=== PATIENT | female | born 1980 | race Caucasian/White ===

== ENCOUNTER 2017-07-17 16:25 | Emergency (ER) | payer OTHER ==
[2017-07-17 16:30] VITALS: BMI 29.0
[2017-07-17] MEDS ORDERED: LR 1000 ML IV 1,000 ML IV ONE ×2 (16:33→16:54)
[2017-07-17] MEDS ORDERED: PHENERGAN INJ 25 MG ONE (16:37)
[2017-07-17] MEDS ORDERED: MORPHINE SULFATE INJ 4 MG ONE (16:38)
[2017-07-17] MEDS ORDERED: PHENERGAN INJ 25 MG IV ONE (16:39)
[2017-07-17] MEDS ORDERED: MORPHINE SULFATE INJ 4 MG IVP ONE (16:39)
--- NOTE | 2017-07-17 16:44 | ED.ABDFE ---
HPI - Time seen Time seen: 16:37 - PCP Primary Care Physician: POOJA GOLDSTEIN - Complaint Chief Complaint Doctors Comments: Patient presents with complaint of acute LLQ pain. Denies fever, vomiting or diarrhea. Chief Complaint:: PATIENT STATED THAT SHE WAS DRIVING AND BECAME SICK TO HER STOMACH AND THE ALL OF A SUDDEN RIGHT LOWER QUAD. PAIN. - Source History Provided: Patient - Mode of arrival Mode of Arrival: Ambulatory - Timing Onset of Chief Complaint: 07/17/17 PMH - PMH Past Medical History: No Past Surgical History: Yes Surgical History: , Hysterectomy - Family History History of Family Medical Conditions: No - Social History Does patient currently use any type of tobacco product: Yes Have you used tobacco products in the last 12 months: Yes Type of Tobacco Use: Cigarettes Does any household member use tobacco: No Alcohol Use: None Do you use any recreational Drugs:: No Lives With: Family Lives Where: Home - infectious screening In the last 2 months have you had wt loss of >10#?: NO Have you had fever, night sweats or hemotysis?: No Have you traveled outside the country in the last 6 months?: No Isolation: Standard ROS - Review of Systems Constitutional: negative: No Symptoms Reported Eyes: No Symptoms Reported ENTM: No Symptoms Reported Respiratoy: No Symptoms Reported Cardiovascular: No Symptoms Reported Gastrointestinal/Abdominal: No Symptoms Reported Genitourinary: No Symptoms Reported Neurological: No Symptoms Reported Musculoskeletal: No Symptoms Reported Integumentary: No Symptoms Reported Hematologic/Lymphatic: No Symptoms Reported Endocrine: No Symptoms Reported Psychiatric: No Symptoms Reported All Other Systems: Reviewed and Negative PE - Vital Signs Vitals: Temperature 97.6 F Pulse Rate 95 Respiratory Rate 20 Blood Pressure 126/78 O2 Sat by Pulse Oximetry 98 - General Limitations: No Limitations General Appearance: Alert, In No Apparent Distress - Head Head Exam: Normal Inspection, Atraumatic - Eyes Eye exam: Normal Appearance, PERRL, EOMI - ENT ENT Exam: Normal Exam - Neck Neck Exam: Normal Inspection, Full ROM - Chest Chest Inspection: Normal Inspection - Respiratory Respiratory Exam: Normal Lung Sounds Bilat Respiratory Exam: Bilateral Clear to Auscultation - Cardiovascular Cardiovascular Exam: Regular Rate, Normal Rhythm - Abdominal Exam Abdominal Exam: Normal Inspection, Tenderness (Left with radiating to right), Rebound, Dimnished Bowel Sounds Abdominal Tenderness: RLQ, Suprapubic - Back Back Exam: Normal Inspection, Full ROM - Extremeties Extremities Exam: Normal Inspection, Full ROM - External Exam: Female: Deferred : Speculum Exam (Female): Deferred : Bimanual Exam (female): Deferred - Neurologic Neurological Exam: Alert, Oriented X3, CN II-XII Intact - Psychiatric Psychiatric Exam: Normal Affect - Skin Skin Exam: Warm, Dry, Intact ROR - Labs Reviewed Result Diagrams: 07/17/17 16:45 07/17/17 16:45 Laboratory: WBC 14.4 X10^3/uL (3.6-10.0) H 07/17/17 16:45 RBC 5.15 X10^6/uL (3.5-5.4) 07/17/17 16:45 Hgb 15.4 g/dL (12.0-16.0) 07/17/17 16:45 Hct 45.0 % (36.0-47.0) 07/17/17 16:45 MCV 87.4 fL (80.0-100.0) 07/17/17 16:45 MCH 29.9 pg (27.0-34.0) 07/17/17 16:45 MCHC 34.2 g/dL (33.0-35.0) 07/17/17 16:45 RDW 13.0 % (11.6-16.5) 07/17/17 16:45 Plt Count 357 X10^3/uL (150.0-450.0) 07/17/17 16:45 MPV 7.4 fL (7.4-11.0) 07/17/17 16:45 Neut % (Auto) 77.5 % (42.0-75.0) H 07/17/17 16:45 Lymph % (Auto) 15.0 % (21.0-51.0) L 07/17/17 16:45 [place] % (Auto) 5.5 % (0.0-13.0) 07/17/17 16:45 Eos % (Auto) 1.5 % (0.9-2.9) 07/17/17 16:45 Baso % (Auto) 0.5 % (0.2-1.0) 07/17/17 16:45 Neut # (Auto) 11.1 x10^3/uL (2.2-4.8) H 07/17/17 16:45 Lymph # (Auto) 2.2 X10^3/uL (1.3-2.9) 07/17/17 16:45 [place] # (Auto) 0.8 x10^3/uL (0.3-0.8) 07/17/17 16:45 Eos # (Auto) 0.2 x10^3/uL (0.0-0.2) 07/17/17 16:45 Baso # (Auto) 0.1 X10^3/uL (0.0-0.1) 07/17/17 16:45 Absolute Nucleated RBC 0.0 /100WBC 07/17/17 16:45 Sodium 142 mmol/L (136-145) 07/17/17 16:45 Corrected Sodium TNP 07/17/17 16:45 Potassium 3.6 mmol/L (3.5-5.1) 07/17/17 16:45 Chloride 105 mmol/L (98-107) 07/17/17 16:45 Carbon Dioxide 25.3 mmol/L (21-32) 07/17/17 16:45 BUN 12 mg/dL (7-18) 07/17/17 16:45 Creatinine 0.74 mg/dL (0.55-1.02) 07/17/17 16:45 Est GFR (MDRD) Af Amer > 60 (>60) 07/17/17 16:45 Est GFR (MDRD) Non-Af > 60 (>60) 07/17/17 16:45 Glucose 95 mg/dL (65-99) 07/17/17 16:45 Calcium 8.5 mg/dL (8.5-10.1) 07/17/17 16:45 C-Reactive Protein 1.00 mg/L (0-3.0) 07/17/17 16:45 Specimen Type Clean catch urine 07/17/17 17:54 Urine Color Yellow (YELLOW) 07/17/17 17:54 Urine Appearance Clear (CLEAR) 07/17/17 17:54 Urine pH 6.0 (5.0 - 8.0) 07/17/17 17:54 Ur Specific [place] 1.010 (1.000-1.030) 07/17/17 17:54 Urine Protein Negative (NEGATIVE) 07/17/17 17:54 Urine Glucose (UA) Negative (NEGATIVE) 07/17/17 17:54 Urine Ketones Negative (NEGATIVE) 07/17/17 17:54 Urine Occult Blood Negative (NEGATIVE) 07/17/17 17:54 Urine Nitrite Positive (NEGATIVE) 07/17/17 17:54 Urine Bilirubin Negative (NEGATIVE) 07/17/17 17:54 Urine Urobilinogen Normal (NORMAL) 07/17/17 17:54 Ur Leukocyte Esterase Negative (NEGATIVE) 07/17/17 17:54 - XRAY XRAY Interpreted by: Radiologist (Findings: The visualized portions of the lung bases are clear. The liver, spleen, pancreas, kidneys and adrenal glands are unremarkable The gallbladder is normal. No renal calculi or obstructive uropathy identified. No free intraperitoneal air. No evidence of intestional obstruction or inflammation. The appendix is normal. No free fluid identified. There are degenerative changes of the lumbosacral spine. The vascular structures are within normal limits for age. No pathologically enlarged lymph nodes are identified. The urinary bladder is unremarkable. Impression: Negative CT of the abdomen and pelvis.) - Diagnosis Discharge Problem: Lumbosacral radiculopathy due to degenerative joint disease of spine - Discharge Plan Condition: Stable - Follow ups/Referrals Follow ups/Referrals: POOJA GOLDSTEIN [Primary Care Provider] - 3 days - Instructions
[2017-07-17 16:57] LABS: BASOPHILS # (AUTO) 0.1 X10^3/uL (0.0-0.1); BASOPHILS % (AUTO) 0.5 % (0.2-1.0); EOSINOPHILS # (AUTO) 0.2 x10^3/uL (0.0-0.2); EOSINOPHILS % (AUTO) 1.5 % (0.9-2.9); HEMOGLOBIN 15.4 g/dL (12.0-16.0); LYMPHOCYTES # (AUTO) 2.2 X10^3/uL (1.3-2.9); MEAN CORPUSCULAR HEMOGLOBIN 29.9 pg (27.0-34.0); MEAN CORPUSCULAR HGB CONC 34.2 g/dL (33.0-35.0); MEAN CORPUSCULAR VOLUME 87.4 fL (80.0-100.0); MEAN PLATELET VOLUME 7.4 fL (7.4-11.0); MONOCYTES # (AUTO) 0.8 x10^3/uL (0.3-0.8); MONOCYTES % (AUTO) 5.5 % (0.0-13.0); NEUTROPHILS # (AUTO) 11.1 x10^3/uL (2.2-4.8); NEUTROPHILS % (AUTO) 77.5 % (42.0-75.0); PLATELET COUNT 357 X10^3/uL (150.0-450.0); RED BLOOD COUNT 5.15 X10^6/uL (3.5-5.4); WHITE BLOOD COUNT 14.4 X10^3/uL (3.6-10.0)
[2017-07-17 17:05] LABS: BLOOD UREA NITROGEN 12 mg/dL (7-18); CALCIUM 8.5 mg/dL (8.5-10.1); CARBON DIOXIDE 25.3 mmol/L (21-32); CHLORIDE 105 mmol/L (98-107); CREATININE 0.74 mg/dL (0.55-1.02); SODIUM 142 mmol/L (136-145); eGFR BLACK RACES > 60 (>60); eGFR NON BLACK RACES > 60 (>60)
[2017-07-17] MEDS ORDERED: NS 100 ML IV 100 ML IV ONE (17:27)
[2017-07-17 18:06] LABS: BILIRUBIN,URINE NEGATIVE (NEGATIVE); BLOOD/HEMOGLOBIN,URINE NEGATIVE (NEGATIVE); GLUCOSE, URINE NEGATIVE (NEGATIVE); KETONES,URINE NEGATIVE (NEGATIVE); LEUKOCYTE ESTERASE ,URINE NEGATIVE (NEGATIVE); NITRITES,URINE POSITIVE (NEGATIVE); PROTEIN,URINE NEGATIVE (NEGATIVE); UROBILINOGEN,URINE NORMAL (NORMAL)
[2017-07-17 18:09] LABS: APPEARANCE,URINE CLEAR (CLEAR); COLOR,URINE YELLOW (YELLOW)
--- NOTE | 2017-07-17 18:10 | CT ---
HISTORY: Abdominal pain Study: CT abdomen and pelvis with contrast Comparison: None Technique: Multiple axial images of the abdomen and pelvis were obtained with IV contrast. Oral contrast was no t administered. Dose reduction techniques including Automated Exposure Control (AEC) and adjustment o f mA and kV were utilized. Findings: The visualized portions of the lung bases are clear. The liver, spleen, pancreas, kidneys, and adren al glands are unremarkable. The gallbladder is normal. No renal calculi or obstructive uropathy ident ified. No free intraperitoneal air. No evidence of intestinal obstruction or inflammation. The appendix is n ormal. No free fluid identified. There are degenerative changes of the lumbosacral spine. The vascular structures are within normal li mits for age. No pathologically enlarged lymph nodes are identified. The urinary bladder is unremarka ble. IMPRESSION: 1.Negative CT of the abdomen and pelvis. Reported By:
[2017-07-17 18:32] VITALS: BP 122/82
[2017-07-18 09:05] LABS: BACTERIA,URINE 1+ /HPF (NEGATIVE); RBC,URINE 0-2 /HPF (NONE SEEN); SQUAMOUS EPITHELIAL CELL,UR FEW /HPF (NEGATIVE)
== END 2017-07-17 18:30 | disposition home or self-care (01) ==
LOC: ER 16:40
DX: M51.17 Intervertebral disc disorders with radiculopathy, lumbosacral region (principal); B96.29 Other Escherichia coli [E. coli] as the cause of diseases classified elsewhere
CPT/HCPCS: 36415; 74177; 80048; 81001; 81003; 85025; 86140; 87086; 87088; 87186; 96365; 96374; 96375; 99282; 99283; A4222; J2270; J2550; J7120